=== PATIENT | female | born 1980 | race Caucasian/White ===

== ENCOUNTER 2018-01-02 21:15 | Emergency (ER) | payer OTHER ==
[~2018-01-02] VITALS: Ht 170.2 cm; Wt 113.4 kg
[2018-01-02] MEDS ORDERED: LEXAPRO (21:24)
[2018-01-02] MEDS ORDERED: BENADRYL (21:25)
[2018-01-02] MEDS ORDERED: ASPIR 8181 MG (21:25)
[2018-01-02] MEDS ORDERED: CLONAZEPAM 1 MG1 M1 (21:25)
[2018-01-02 21:47] LABS: ABSOLUTE BASOPHILS 0.1 thou/uL (0.0-0.2); ABSOLUTE EOSINOPHILS 0.3 thou/uL (0.0-0.7); ABSOLUTE MONOCYTES 0.9 thou/uL (0.0-1.2); ABSOLUTE NEUTROPHILS 5.7 thou/uL (1.6-8.1); BASOPHILS 1.1 %; EOSINOPHILS 3.4 %; HEMATOCRIT 45.1 % (37.0-47.0); LYMPHOCYTES 29.8 %; MCH 28.4 pg (26.0-34.0); MCHC 33.2 g/dL (28.0-37.0); MCV 85.3 fL (80.0-100.0); MONOCYTES 9.3 %; MPV 8.3 fl. (7.2-11.1); NUCLEATED RBCS 0 /100WBC; PLATELET COUNT* 317 thou/uL (150-400); POLYS 56.4 %; RBC 5.28 mil/uL (4.20-5.00); RDW-CV 13.8 % (10.5-14.5); WBC 10.2 thou/uL (4.0-11.0)
[2018-01-02 21:53] LABS: ANION GAP 7 mmol/L (7-16); BUN 11 mg/dL (7-18); CALCIUM 8.5 mg/dL (8.5-10.1); CHLORIDE 106 mmol/L (98-107); CO2 28 mmol/L (21-32); GLUCOSE 82 mg/dL (70-99); POTASSIUM 3.9 mmol/L (3.5-5.1); SODIUM 141 mmol/L (136-145)
[2018-01-02 22:00] LABS: ALBUMIN 3.4 g/dL (3.4-5.0); ALKALINE PHOSPHATASE 91 U/L (46-116); SGOT 15 U/L (15-37); SGPT 19 U/L (30-65); TOTAL BILIRUBIN 0.3 mg/dL (<0.1-1.0); TOTAL PROTEIN 6.9 g/dL (6.4-8.2); TROPONIN-I LEVEL <0.06 ng/mL (<0.06)
[2018-01-02] MEDS ORDERED: LISINOPRIL5 MG PO (22:42)
[2018-01-02] MEDS ORDERED: HYDROCHLOROTH12.5 M1 PO (22:42)
[2018-01-02 22:57] VITALS: BP 154/85
--- NOTE | 2018-01-03 11:27 | EKG ---
[place] [address] ELECTROCARDIOGRAM REPORT Name: MAGGIEFERNANDA FOUNTAIN [id number] Admission: 01/02/18 Attend Phys: Discharge: 01/02/18 Date of : 80 Report #: [id number] THIS REPORT FOR: //name// [facility] ED Test Date: 2018-01-02 Test Time: 21:41:54 Pat Name: FERNANDA SERRANO Department: Room: Gender: F Manufacturing Assembler: [email or web address] : 1980 Requested By: Renetta Clemons Order Number: [id number] MD: Brett Pepper Measurements Intervals [place] Rate: 88 P: 35 WA: 144 QRS: 36 QRSD: 91 T: 12 QT: 356 QTc: 431 Interpretive Statements Sinus rhythm No previous ECG available for comparison Electronically Signed On 01-03-2018 11:27:37 CDT by Brett Pepper [email or web address] <ELECTRONICALLY SIGNED> By: Brett Pepper MD, [facility] 01/03/18 [id number] Brett Pepper MD, FACC /EPI
== END 2018-01-02 22:58 | disposition home or self-care (01) ==
LOC: M.ERS 21:15
PROVIDERS: Personal Emergency Response Attendant
DX: R03.0 Elevated blood-pressure reading, without diagnosis of hypertension (principal); G43.909 Migraine, unspecified, not intractable, without status migrainosus; F32.9 Major depressive disorder, single episode, unspecified